=== PATIENT | male | born 1940 | race Caucasian/White ===

== ENCOUNTER 2017-04-16 14:58 | Inpatient (IN) | payer OTHER ==
[~2017-04-16] VITALS: Ht 172.7 cm; Wt 54.6 kg
--- NOTE | 2017-04-16 14:59 | NUR ---
REC'D PATIENT BIBA, PER MEDIC, PT WAS FOUND AT HOME IN HOSPITAL BED IN RESPIRATORY DISTRESS, AUDIBLE RHONCHI IN UNIQUE LUNG SINGH. PER MEDIC, "PATIENT HAD SIEZURE LIKE SHAKING TO HIS RIGHT UPPER EXTREMITIY AND WAS DESATURATING TO THE LOW 80'S, BLOOD SUGAR 166." PT ARRIVED ON UNIT WITH TACHYPNEA, UNRESPONSIVE TO VERBAL COMMANDS. NOTED USE OF ACCESSORY MUSCLES TO BREATHE. RT IN TO SEE PATIENT.
--- NOTE | 2017-04-16 15:05 | NUR ---
DR. WILSON IN TO SEE PT FOR MSE
[2017-04-16 15:36] LABS: PLATELET COUNT 194 x10^3mcL (130-400)
--- NOTE | 2017-04-16 15:36 | NUR ---
PT GONE FOR CT SCAN
--- NOTE | 2017-04-16 15:40 | NUR ---
PT BACK FROM CT SCAN WITH NO INCIDENCE
--- NOTE | 2017-04-16 15:42 | NUR ---
DR. WILSON IN TO SEE PATIENT.
[2017-04-16 16:02] LABS: BASOPHIL % 0 % (0-2); RED CELL DISTRIBUTION WIDTH 14.6 % (11.5-14.5)
[2017-04-16 16:03] LABS: ALKALINE PHOSPHATASE 120 U/L (46-116); ALT/SGPT 27 U/L (16-63); AST/SGOT 24 U/L (15-37); BILIRUBIN TOTAL 0.4 mg/dL (0.20-1.00); CALCIUM 8.8 mg/dL (8.5-10.1); CARBON DIOXIDE 13.4 mmol/L (21-32); CHLORIDE SERUM 89 mmol/L (98-107); CREATININE SERUM 1.6 mg/dL (0.7-1.3); GLUCOSE SERUM 178 mg/dL (74-106); POTASSIUM SERUM 5.2 mmol/L (3.5-5.1); TOTAL PROTEIN, SERUM 7.2 g/dL (6.4-8.2)
[2017-04-16 16:07] LABS: SODIUM SERUM 122 mmol/L (136-145)
--- NOTE | 2017-04-16 17:15 | NUR ---
PT NOW TRACKING AND MIRRORING PHYSICAL COMMANDS WHEN ASKED TO DO SO.
[2017-04-16 17:32] LABS: UA SPECIFIC GRAVITY 1.015 (1.005-1.035); microscopic required? YES
[2017-04-16 17:33] LABS: urine erythrocyte TRACE (NEGATIVE)
--- NOTE | 2017-04-16 18:01 | NUR ---
PT REAMINS ON BIPAP AND DOES NOT APPEAR TO BE IN ANY KIND OF RESPIRATORY DFISTRESS AT THIS TIME.
--- NOTE | 2017-04-16 18:27 | NUR ---
RERPORT CALLED TO JANELL ON TELE UNIT AT THIS TIME.
[2017-04-16 18:58] LABS: MAGNESIUM 1.9 mg/dL (1.8-2.4)
[2017-04-16 19:00] LABS: CHOLESTEROL/HDL RATIO 2.3
[2017-04-16 19:06] LABS: FREE T4 1.38 ng/dL (0.76-1.46); FREE THYROXINE INDEX 2.9 ug/dL (1.4-4.5); T4(THYROXINE) 7.4 ug/dL (4.7-13.3)
[2017-04-16 19:07] LABS: T3 TOTAL 1.06 ng/mL
[2017-04-16 19:23] VITALS: BP 134/57
--- NOTE | 2017-04-16 19:30 | NUR ---
RECEIVED PT FROM ED VIA DONOVAN. ORIENTED PT TO ROOM AND SURROUNDINGS. IV NOTED TO LFA PATENT AND INTACT. TELE 25 PLACED ON PT READING AFIB. INSTRUCTED PT ON THE USE OF CALL LIGHT FOR ASSISTANCE. ENDORSED PT TO PRIMARY NURSE LINDY
[2017-04-16] MEDS ORDERED: TAMSULOSIN HYD0.4 M1 PO (19:39)
[2017-04-16] MEDS ORDERED: KEPPRA1000 M1 PO (19:39)
[2017-04-16] MEDS ORDERED: GOOD SENSE OMEP20 MG PO (19:40)
[2017-04-16] MEDS ORDERED: ALLOPURINOL100 MG PO (19:40)
[2017-04-16] MEDS ORDERED: COUMADIN1 MG GT (19:41)
--- NOTE | 2017-04-16 19:41 | NUR ---
RECEIVED PATIENT AWAKE, ALERT AND ORIENTED WITH NO SIGN OF ACUTE RESPIRATORY DISTRESS NOTED, BREATHING EASY AND NON LABOR SATTING AT 99% RA. FAMILY MEMBERS AT BEDSIDE. LÓPEZ TO GRAVITY WITH DARK YELLOW URINE OUTPUT. IV TO LFA INTACT AND INFUSING WELL. SEIZURE PRECAUTION SIDERAIL PADDED. WILL CONTINUE TO MONITOR.
[2017-04-16] MEDS ORDERED: NAMENDA10 M2 PO (19:42)
[2017-04-16] MEDS ORDERED: PRINIVIL10 MG PO (19:43)
[2017-04-16] MEDS ORDERED: LOVASTATIN40 MG PO (19:43)
[2017-04-16] MEDS ORDERED: METOPROLOL TART25 M1 PO (19:44)
--- NOTE | 2017-04-16 19:54 | NUR ---
PER CERTIFIED RESIDENTIAL MEDICATION AIDE PATIENT CONVERTED TO NSR FROM AFIB.
[2017-04-16] MEDS ORDERED: LANTUS SOLOS100 U/M1 SC (19:55)
--- NOTE | 2017-04-16 20:05 | NUR ---
PER RESERVOIR ENGINEERING CONSULTANT PATIENT IS HAVING IST DEGREE AV BLOCK WITH PAC, PATIENT SLEEPING THIS TIME WITH NO SIGN OF DISTRESS NOTED. WILL CONTINUE TO MONITOR.
[2017-04-16 21:25] VITALS: BP 134/57
--- NOTE | 2017-04-16 21:25 | NUR ---
O2 SAT 84% RA, PAGED RT AND PUT PATIENT ON BIPAP, SATTING AT 96% THIS TIME. WILL CONTINUE TO MONITOR.
[2017-04-16 22:22] LABS: CALCIUM 8.2 mg/dL (8.5-10.1); CHLORIDE SERUM 96 mmol/L (98-107); CREATININE SERUM 1.3 mg/dL (0.7-1.3); GLUCOSE SERUM 106 mg/dL (74-106); POTASSIUM SERUM 4.5 mmol/L (3.5-5.1); SODIUM SERUM 129 mmol/L (136-145)
--- NOTE | 2017-04-17 03:48 | NUR ---
SLEEPING THIS TIME BREATHING EASY AND NONLABOR, ON CONTINOUS BIPAP.
--- NOTE | 2017-04-17 05:12 | NUR ---
SLEPT FAIRLY NO SIGN OF SEZURE NOTED. CHECKED AT INTERVALS FOR NEEDS AND SAFETY. HAD BM X1 SOFT IN LARGE AMOUNT.
[2017-04-17 05:55] VITALS: BP 102/49
[2017-04-17 06:21] LABS: BASOPHIL % 0.1 % (0-2); PLATELET COUNT 148 x10^3mcL (130-400)
[2017-04-17 06:33] LABS: CALCIUM 8.7 mg/dL (8.5-10.1); CARBON DIOXIDE 24.6 mmol/L (21-32); CHLORIDE SERUM 101 mmol/L (98-107); CREATININE SERUM 1.1 mg/dL (0.7-1.3); GLUCOSE SERUM 64 mg/dL (74-106); PHOSPHOROUS 3.8 mg/dL (2.5-4.9); POTASSIUM SERUM 4.2 mmol/L (3.5-5.1); SODIUM SERUM 131 mmol/L (136-145)
[2017-04-17 06:52] LABS: RED CELL DISTRIBUTION WIDTH 15.1 % (11.5-14.5)
--- NOTE | 2017-04-17 07:15 | NUR ---
RECEIVED PATIENT AWAKE/ALERT ANSWER QUESTIONS APPROPRIATELY; ON BIPAP 01/23 RR 17 NO DISTRESS NOTED, DENIES PAIN. IV INTACT AND INFUSING WELL; LÓPEZ CLAMPED FOR RENAL US; PATIENT WAS INFORM. CALL LIGHT WITHIN REACH. CONT TO MONITOR.
--- NOTE | 2017-04-17 09:17 | NUR ---
PATIENT RESTING IN BED NO DISTRESS NOTED, ATE 100% OF BREAKFAST, ALL DUE MEDS GIVEN TAKING ONE PILL AT THE TIME NO PROBLEM WITH SWALLOWING. VISITOR CAME IN TO VISIT PATIENT AT THIS TIME. LÓPEZ LEAKING NOTED, INCONT CARE PROVIDED. NEEDS ANTICIPATED.
--- NOTE | 2017-04-17 10:00 | NUR ---
REPOSITION PATIENT UP IN BED, TECH AT BEDSIDE PERFORM RENAL US ORDERED.
[2017-04-17 10:40] VITALS: BP 114/55
--- NOTE | 2017-04-17 12:00 | NUR ---
REPOSITION PATIENT UP IN BED AWAKE/ALERT; DUE MEDS GIVEN W/O DIFFICULTY. BS 89 NO COVERAGE NEEDED. ZOSYN 2.25GM IVPB GIVEN, CONT TO MONITOR. DR DE ELÓN WAS INFORM COUMADIN DOSE NEED TO CLARIFIED PER DOCTOR WILL SWITCH TO XARELTO.
--- NOTE | 2017-04-17 13:02 | NUR ---
DR. DE LEÓN SEEN PATIENT AT BEDSIDE, MYSELF PRESENT ASSIST WITH TRANSLATION. DISCUSS WITH PATIENT CHANGE COUMADIN TO XARELTO; PATIENT VERBALIZE UNDERSTANT; PATIENT [facility]. PATIENT SAT UP IN BED EATING NO COMPLAINTS. NEEDS ANTICIPATED.
--- NOTE | 2017-04-17 13:07 | NUR ---
Initial Nutrition Assessment Dx: Sepsis, Seizure, Respiratory Failure, Hyponatremia PMHx: DM, gout, BPH, HLD, HTN, a fib, s/p intestinal surgery, s/p brain surgery, pancreatitis, LE DVT PSHx: Intestinal surgery (1 year ago), brain surgery (unknown type) Labs: Na 131 L, K 4.2, BG 64 L, Ammonia 30, WBC 14.4 H, H/H 11.6/35 L; (04/16) ALB 3 L, Amylase 180 H, A1C 5.6, Lactic Acid 5.2 H (trending down) Meds: Cephulac, Colace, D50, humulin R, lactinex, levemir, phoslo, NS IV, zofran, coumadin Current Diet Order: Mechanical Soft, Chopped, CCHO-60 gm, Low Potassium PO Intakes: (04/17) B: 100% Ht: 68", 5' 8". Wt: 120 lb, 55 kg. BMI: 18.3 kg/m2 (Underweight) IBW: 154 lb, 70 kg. %IBW: 79%. UBW: Pt unable to recall Age: 76 Y/O M Food Allergies: None Skin: Intact. Bryan 15. Edema: None GI: Active bowel sounds. Last BM 04/16. Pt found with acute tonic clonic seizure, possible septic shock, source unknown per doctor's notes. Pt is mainly Armenian-speaking, does speak some Slovenian. Pt reported good PO intakes, no issues chewing/swallowing. No family at bedside during RD verbal interview. Pt does not exhibit signs and symptoms of malnutrition. Per nursing notes, pt has no issues swallowing pills whole, ate 100% of breakfast. Problem with: N: None. V: None. D: None. C: None. Problems with: Chewing: None. Swallowing: None. Current Appetite: Good Recent Weight Change: Pt unable to recall. % Weight Change: N/A Vitamin/Supplement use: None Diet at Home: Regular Physical Activity: Limited Education: Not appropriate at this time Estimated Nutritional Needs Based CBW 120 lb, 55 kg. Temperature: 97.8 F/36.5 C Energy: 3840-3116 kcal/day (30-35 kcal/kg for Sepsis, Gradual Weight Gain) Protein: 83-110 gm/day (1.5-2 gm/kg for Sepsis, Gradual Weight Gain) Fluids: 1650 ml/day (30 ml/kg for Maintenance) or per doctor Nutrition Diagnosis Increase nutritional needs (energy, protein) related to increased metabolic demands as evidenced by pt with sepsis, elevated WBC 14.4, lactic acid 5.2 Intervention 1. Recommend Mechanical Soft, Chopped, CCHO-60 gm diet. Noted no potassium restriction warranted at this time due to normal K+ levels. 2. Consider daily weights if feasible. Monitor/Evaluate Goal: PO intakes to meet >75% of estimated needs; Weight maintenance at 120 lb Monitor: PO intakes, tolerance to diet, labs, skin integrity, GI function, weights F/U in 3-5 days as MODERATE risk (04/20-04/22)
[2017-04-17 14:07] VITALS: BP 103/41
--- NOTE | 2017-04-17 14:24 | NUR ---
REPOSITION PATIENT UP IN ON LEFT SIDE PER TECH REQUEST; WILL PERFORM ECHO AT THIS TIME. LÓPEZ EMPTIED 1400ML CLEAR YELLOW URINE. NO COMPLAINTS. CONT TO MONITOR.
[2017-04-17 17:06] VITALS: BP 108/42
[2017-04-17 17:07] VITALS: BP 107/66
--- NOTE | 2017-04-17 17:10 | NUR ---
PATIENT ASLEEP AROUSABLE DENIES PAIN, REPOSITION UP IN BED; DUE MEDS GIVEN W/O ANY PROBLEM. ZOSYN IVPB GIVEN. DR DE LEÓN AT BEDSIDE UPDATE PATIENT POC AND CONDITION. NO FURTHER QUESTIONS. CONT TO MONITOR.
--- NOTE | 2017-04-17 17:15 | NUR ---
COUMADIN 2MG PO GIVEN ORDERED, INR 1.2 FROM 04/16/17.
--- NOTE | 2017-04-17 18:49 | NUR ---
Patient resting in bed comfortable no distress noted, cont to monitor.
--- NOTE | 2017-04-17 19:40 | NUR ---
RECEIVED Pt AAOX3 CALM AND COOPERATIVE. MORNING NURSE/RN TRANSLATING, Pt ONLY SPEAKS DANISH. DENIES ANY CHEST PAIN. LUNG SOUNDS ARE CTA BILATERALLY. Pt FOUND ON ROOM AIR, NO RESPIRATORY DISTRESS NOTED. ACTIVE BOWEL SOUNDS X4 QUADS. DENIES ANY ABDOMINAL PAIN, N/V/D. LÓPEZ CATH PATENT. ABRASION TO RIGHT SIDE OF BACK AND EXCORIATION TO TIP OF PENIS NOTED. IV SITE TO LFA PATENT. RIGHT SIDED WEAKNESS NOTED. Pt MOVES ALL EXTREMITIES, NO EDEMA NOTED. RE-ORIENTED TO ROOM, CALL LIGHT SYSTEM AND POC. WILL CONTINUE TO MONITOR.
[2017-04-17 20:51] VITALS: BP 103/44
--- NOTE | 2017-04-18 00:21 | NUR ---
I HAVE REVIEWED THE DATA COLLECTION BY IAN (NAME):KATHI TOLLIVER ENTERED ON (DATE/TIME): 04/18/17 0024 I CONCUR WITH THE DATA AND ANY EXCEPTIONS OR COMMENTS ARE LISTED BELOW:
--- NOTE | 2017-04-18 00:22 | NUR ---
Pt AWAKE, NO SIGNS OF DISTRESS. WILL CONTINUE TO MONITOR.
--- NOTE | 2017-04-18 05:23 | NUR ---
NO SIGNIFICANT CHANGES NOTED OVER NIGHT. NO SEIZURE ACTIVITY NOTED. LÓPEZ CATH PATENT. IV SITE PATENT. SAFETY AND COMFORT MEASURES REMAIN IN PLACE. WILL CONTINUE TO MONITOR.
[2017-04-18 05:25] VITALS: BP 91/46
[2017-04-18 06:06] LABS: BASOPHIL % 0.2 % (0-2); PLATELET COUNT 130 x10^3mcL (130-400)
[2017-04-18 06:10] LABS: CALCIUM 8.3 mg/dL (8.5-10.1); CHLORIDE SERUM 103 mmol/L (98-107); CREATININE SERUM 1.2 mg/dL (0.7-1.3); GLUCOSE SERUM 82 mg/dL (74-106); POTASSIUM SERUM 3.9 mmol/L (3.5-5.1); SODIUM SERUM 134 mmol/L (136-145)
[2017-04-18 06:26] LABS: RED CELL DISTRIBUTION WIDTH 14.8 % (11.5-14.5)
--- NOTE | 2017-04-18 07:15 | NUR ---
PATIENT ASLEEP AROUSABLE NO DISTRESS NOTED, DENIES PAIN AT THIS TIME, REPOSITION UP IN BED, IV X 2 INTACT AND PATENT; LÓPEZ TO GRAVITY WITH CLEAR YELLOW URINE NOTED. BLE ELEVATED ON PILLOWS. CALL LIGHT WITHIN REACH. CONT TO MONITOR.
--- NOTE | 2017-04-18 07:35 | NUR ---
ASSIST PATIENT SET UP BREAKFAST PATIENT ABLE TO FEED SELF; USING LEFT HAND; RT HAND WEAKNESS NOTED. CALL LIGHT WITHIN REACH.
--- NOTE | 2017-04-18 08:27 | NUR ---
DR. KING ROUND WITH MEDICAL TEAM DISCUSS POC WITH PATIENT; MYSELF ASSIST WITH TRANSLATION; PLAN DISCHARGE THIS AFTERNOON.
[2017-04-18 09:57] VITALS: BP 84/42; BP 97/43
--- NOTE | 2017-04-18 10:00 | NUR ---
PATIENT RESTING IN BED CALM NO COMPLAINT. ALL DUE MEDS GIVEN W/O PROBLEM. BP 97/43, MAP 61 LOPRESSOR HELDED. CAME IN TO VISIT PATIENT; UPDATE PATIENT IS DISCHARGE THIS AFTERNOON. PER WILL GO HOME TO GET PATIENT CLOTHES AND BE BACK LATER. CALL LIGHT WITHIN REACH.
--- NOTE | 2017-04-18 11:15 | NUR ---
RESTING IN BED COMFORTABLE, NO COMPLAINT. BS 115 NO COVERAGE NEEDED. CALL LIGHT WITHIN REACH.
--- NOTE | 2017-04-18 11:53 | NUR ---
PATIENT RESTING COMFORTABLE, AT BEDSIDE. DUE MEDS GIVEN. ZOSYN IVPB INFUSING. NEEDS ANTICIPATED.
--- NOTE | 2017-04-18 13:13 | NUR ---
PATIENT SON AT BEDSIDE ASSIST FEEDING PATIENT, IV AND LÓPEZ DC'D AND INTACT, WILL ASSIST PATIENT GETTING DRESS; TELE BOX RETURN TO MONITOR ROOM. WAITING FOR DISCHARGE TO FINALIZED.
[2017-04-18 13:17] VITALS: BP 97/43
[2017-04-18] MEDS ORDERED: LEVAQUIN750 MG PO (13:26)
--- NOTE | 2017-04-18 14:16 | NUR ---
PATIENT ALREADY DRESS RESTING IN BED, GIVE DISCHARGE INSTRUCTIONS AND PRESCRIPTION TO PT'S SON; PER FAMILY REQUEST TO MAKE THEIR OWN F/U APPT WHEN THEY GET HOME. ADARSH STARR ASSISTING WHEEL PATIENT OUT. ALL BELONGINGS WITH FAMILY.
== END 2017-04-18 14:31 | disposition home or self-care (01) | DRG 100 ==
LOC: ED 14:58 → DU 17:33
PROVIDERS: Emergency Medicine; ADMIT Family Medicine
DX: G40.909 Epilepsy, unspecified, not intractable, without status epilepticus (principal); N17.0 Acute kidney failure with tubular necrosis; J96.01 Acute respiratory failure with hypoxia; R53.2 Functional quadriplegia; D68.69 Other thrombophilia; E44.0 Moderate protein-calorie malnutrition; Z68.1 Body mass index [BMI] 19.9 or less, adult; I82.412 Acute embolism and thrombosis of left femoral vein; E87.1 Hypo-osmolality and hyponatremia; E11.51 Type 2 diabetes mellitus with diabetic peripheral angiopathy without gangrene; K72.90 Hepatic failure, unspecified without coma; E87.5 Hyperkalemia; N28.1 Cyst of kidney, acquired; M10.9 Gout, unspecified; E83.39 Other disorders of phosphorus metabolism; E78.5 Hyperlipidemia, unspecified; Z74.01 Bed confinement status; Z79.4 Long term (current) use of insulin; Z79.01 Long term (current) use of anticoagulants; Z86.718 Personal history of other venous thrombosis and embolism; Z86.73 Personal history of transient ischemic attack (TIA), and cerebral infarction without residual deficits
CPT/HCPCS: 36600; 82962; 83880; 84439; J1815; J2543; J3490; J7030; Q0092